=== PATIENT | male | born 1990 | race Caucasian/White ===

== ENCOUNTER → 2023-10-22 14:04 | Outpatient (REF) | payer OTHER, SELFPAY | LOC: RAD 14:04 | PROVIDERS: ATTENDING PHYSICIAN Physician Assistant | DX: N50.812 Left testicular pain (principal) | CPT/HCPCS: 76870; 93976 ==

== ENCOUNTER 2024-04-21 12:51 | Emergency (ER) | payer BC, SELFPAY ==
[2024-04-21 12:53] VITALS: BP 155/92
--- NOTE | 2024-04-21 14:50 | ED.GENMED ---
History of Present Illness
<NIKI Gary - Last Filed: 04/23/24 23:29>
General
Chief Complaint: Throat Problem
Source: patient
Exam Limitations: none
Time Seen by Provider: 04/21/24 14:38
Nursing documentation reviewed up to this point in time: agreed with
History of Present Illness
History of Present Illness:
Patient is a 31-year-old male who presents with a sore throat for the past several days. He was seen by urgent care on Wednesday, 2 days ago tested negative for strep. He had a culture done and did not start antibiotics yet. Last night however
his throat became worse he was not able to sleep and has been sore throat. He is able swallow secretions but has pain. He went to urgent care today it was concerned about his uvula being deviated and sent him here for an abscess. He received oral
Decadron at urgent care and does feel that his symptoms have improved. He denies any difficulty breathing.
He denies any associated fevers.
Review of Systems
<NIKI Gary - Last Filed: 04/23/24 23:29>
Review of Systems
Allergies reviewed?: Yes
All Other Systems: ROS reviewed and negative except as documented in HPI and ROS
Constitutional: Denies fever
EENT: Reports sore throat
Respiratory: Reports no symptoms; Denies trouble breathing
Cardiac: Reports no symptoms
ABD/GI: Reports no symptoms
: Reports no symptoms
Musculoskeletal: Reports no symptoms
Skin: Reports no symptoms
Neurological: Reports no symptoms
Psychiatric: Reports no symptoms
Phy Exam
<NIKI Gary - Last Filed: 04/23/24 23:29>
General Physical Exam
General Presentation: no apparent distress
General age: appears stated age
General Skin: warm and dry
General Habitus: normal
General Mental: alert
General Hydration: appears well hydrated
ENT Exam
ENT Exam: other (Pharynx is red uvula very minimally deviated to the left tonsils are swollen small exudate right tonsil; no obvious fullness to upper palate)
Cardiovascular Exam
Cardiovascular Exam: regular rate/rhythm, no murmur and normal peripheral pulses
Neurological Exam
Neurological Exam: alert and oriented x3
Musculoskeletal Exam
Musculoskeletal Exam: full ROM
Skin Exam
Skin Exam: normal color and warm/dry
Psychiatric Exam
Psychiatric Exam: normal mood/affect
Course
<NIKI Gary - Last Filed: 04/23/24 23:29>
Orders/Labs/Results
Orders:
Orders
04/21/24 14:48
CT Neck With Iv Contrast Urgent
Comment:
Reason For Exam: rule out peritonsillar abscess
04/21/24 14:49
0.9% Sodium Chloride 1000 ml [Nss] 1,000 ml IV BOLUS
04/21/24 14:50
Ketorolac [Toradol] 15 mg IV NOW STA
04/21/24 15:30
Complete Blood Count/With Diff Urgent
Comprehensive Metabolic Panel Urgent
Monotest Urgent
Rapid Strep Group A Urgent
RUBENS Source: Throat/Pharynx
Specimen Description:
Date Specimen was Collected: 04/21/24
Time Specimen was Collected: 15:20
Abnormal Lab Results
04/21/24
15:30
WBC 12.0 H 10^3/uL
(4.8-10.8)
Absolute Neuts (auto) 11.0 H 10^3/uL
(1.4-6.5)
Absolute Lymphs (auto) 0.8 L 10^3/uL
(1.2-3.4)
Neutrophils % 92.1 H %
(42.2-75.2)
Lymphocytes % 6.3 L %
(20.5-51.1)
Monocytes % 0.9 L %
(1.7-9.3)
Glucose 120 H mg/dl
(70-99)
04/21/24 15:30
04/21/24 15:30
Vital Signs
Initial and Last Documented VS:
Initial Vital Signs
Temp Pulse Resp BP Pulse Ox
98 F 88 16 155/92 99
04/21/24 12:53 04/21/24 12:53 04/21/24 12:53 04/21/24 12:53 04/21/24 12:53
Last Documented Vital Signs
Temp Pulse Resp BP Pulse Ox
98 F 75 20 132/88 98
04/21/24 12:53 04/21/24 16:15 04/21/24 16:15 04/21/24 16:15 04/21/24 16:15
<Roxie Guerrero PA-C - Last Filed: 04/21/24 17:29>
Orders/Labs/Results
Orders:
Orders
04/21/24 14:48
CT Neck With Iv Contrast Urgent
Comment:
Reason For Exam: rule out peritonsillar abscess
04/21/24 14:49
0.9% Sodium Chloride 1000 ml [Nss] 1,000 ml IV BOLUS
04/21/24 14:50
Ketorolac [Toradol] 15 mg IV NOW STA
04/21/24 15:30
Complete Blood Count/With Diff Urgent
Comprehensive Metabolic Panel Urgent
Monotest Urgent
Rapid Strep Group A Urgent
RUBENS Source: Throat/Pharynx
Specimen Description:
Date Specimen was Collected: 04/21/24
Time Specimen was Collected: 15:20
Abnormal Lab Results
04/21/24
15:30
WBC 12.0 H 10^3/uL
(4.8-10.8)
Absolute Neuts (auto) 11.0 H 10^3/uL
(1.4-6.5)
Absolute Lymphs (auto) 0.8 L 10^3/uL
(1.2-3.4)
Neutrophils % 92.1 H %
(42.2-75.2)
Lymphocytes % 6.3 L %
(20.5-51.1)
Monocytes % 0.9 L %
(1.7-9.3)
Glucose 120 H mg/dl
(70-99)
04/21/24 15:30
04/21/24 15:30
Vital Signs
Initial and Last Documented VS:
Initial Vital Signs
Temp Pulse Resp BP Pulse Ox
98 F 88 16 155/92 99
04/21/24 12:53 04/21/24 12:53 04/21/24 12:53 04/21/24 12:53 04/21/24 12:53
Last Documented Vital Signs
Temp Pulse Resp BP Pulse Ox
98 F 75 20 132/88 98
04/21/24 12:53 04/21/24 16:15 04/21/24 16:15 04/21/24 16:15 04/21/24 16:15
<Westley Lilly PA-C - Last Filed: 04/24/24 10:07>
Orders/Labs/Results
Orders:
Orders
04/21/24 14:48
CT Neck With Iv Contrast Urgent
Comment:
Reason For Exam: rule out peritonsillar abscess
04/21/24 14:49
0.9% Sodium Chloride 1000 ml [Nss] 1,000 ml IV BOLUS
04/21/24 14:50
Ketorolac [Toradol] 15 mg IV NOW STA
04/21/24 15:30
Complete Blood Count/With Diff Urgent
Comprehensive Metabolic Panel Urgent
Monotest Urgent
Rapid Strep Group A Urgent
RUBENS Source: Throat/Pharynx
Specimen Description:
Date Specimen was Collected: 04/21/24
Time Specimen was Collected: 15:20
Abnormal Lab Results
04/21/24
15:30
WBC 12.0 H 10^3/uL
(4.8-10.8)
Absolute Neuts (auto) 11.0 H 10^3/uL
(1.4-6.5)
Absolute Lymphs (auto) 0.8 L 10^3/uL
(1.2-3.4)
Neutrophils % 92.1 H %
(42.2-75.2)
Lymphocytes % 6.3 L %
(20.5-51.1)
Monocytes % 0.9 L %
(1.7-9.3)
Glucose 120 H mg/dl
(70-99)
04/21/24 15:30
04/21/24 15:30
Vital Signs
Initial and Last Documented VS:
Initial Vital Signs
Temp Pulse Resp BP Pulse Ox
98 F 88 16 155/92 99
04/21/24 12:53 04/21/24 12:53 04/21/24 12:53 04/21/24 12:53 04/21/24 12:53
Last Documented Vital Signs
Temp Pulse Resp BP Pulse Ox
98 F 75 20 132/88 98
04/21/24 12:53 04/21/24 16:15 04/21/24 16:15 04/21/24 16:15 04/21/24 16:15
<NIKI Gary - Last Filed: 04/23/24 23:29>
MDM/Problems Addressed
MDM/Problems Addressed:
Patient with persistent sore throat for the past several days seen in urgent care tested negative for strep sent here for rule out peritonsillar abscess. On exam patient is nontoxic no drooling very minimal deviation to the left of uvula with
exudate to the right tonsil, tonsils are bilaterally enlarged and red. He is tolerating secretions well and afebrile here in the ER. Will check CAT scan ,check for mono and give fluids .will also give IV Toradol.
1515: Care of patient at this time transferred to [facility].
<Roxie Guerrreo PA-C - Last Filed: 04/21/24 17:29>
*Critical Care Note
Total Time (30-74mins, 75-104mins- exclusive of procedures): Not Applicable
<Roxie Guerrero PA-C - Last Filed: 04/21/24 17:29>
Update Note
Update Note:
04/21/2024 1728 PM assumed care from [facility] at [address] shows no findings of a WOOL SPOTTER or any significant cellulitis. There incidentally was an abnormality of the thoracic spine could be just a simple bone island but the radiologist
recommended follow-up. The patient was informed about this. It is on the T3 vertebral body. Otherwise he feels remarkably better after getting Decadron at urgent care and already has a prescription for biotics. We talked about holding the
antibiotic for 24 hours since his rapid strep is negative. He is going to see how he feels and start the antibiotics should he need them. He got a repeat dose of Decadron for 2 days from now
<Westley Lilly PA-C - Last Filed: 04/24/24 10:07>
Update Note
Update Note:
04/21/2024 1728 PM assumed care from [facility] at [address] shows no findings of a WOOL SPOTTER or any significant cellulitis. There incidentally was an abnormality of the thoracic spine could be just a simple bone island but the radiologist
recommended follow-up. The patient was informed about this. It is on the T3 vertebral body. Otherwise he feels remarkably better after getting Decadron at urgent care and already has a prescription for biotics. We talked about holding the
antibiotic for 24 hours since his rapid strep is negative. He is going to see how he feels and start the antibiotics should he need them. He got a repeat dose of Decadron for 2 days from now
04/24/2024 1007 AM: Informed patient of positive group C strep culture, he states this was notified to him by urgent care as well. He is already on antibiotics. Reiterated that he will need follow-up for his abnormal CT scan result regarding the
sclerotic density in T3 vertebral body.
ED Attending Note
<NIKI Gary - Last Filed: 04/23/24 23:29>
-
Portions of this chart may have been created with voice recognition software.� Occasional wrong word or��sound alike� substitutions may have occurred due to the inherent limitations of voice recognition software.
Discharge Plan
Departure
Patient Disposition: Home (Routine Discharge)
Date of Disposition: 04/21/24
Time of Disposition: 17:22
Patient with high blood pressure during this ER visit?: No
Condition: Fair
Covid-19: Not Applicable
Discharge Problem:
Acute tonsillitis
Instructions: Sore throat in adults
Prescriptions:
New
dexamethasone 6 mg tablet
6 mg PO DAILY Qty: 1 0RF
Rx Instructions:
TAKE ON 04/23
Referrals:
Arvind Shea PA [Family Provider] - Follow up in 2-3 days
Juno Winston MD [Active] - Follow up in 5-7 days (ENT)
Activity Restrictions/Additional Instructions:
YOUR CAT SCAN DID NOT SHOW ANY ABSCESS IN YOUR TONSIL
YOU DO HAVE SOME MILD SWELLING THERE
TAKE THE DECADRON ON WEDNESDAY TO CONTINUE TO HELP WITH SWELLING AN DPAIN
MOTRIN 600 MG EVERY 8 HOURS NEEDED
DRINK FLUIDS
INCIDENTALLY THERE WAS A SPOT ON A BONE IN YOUR NECK THAT NEEDS FOLLOW UP TO ENSURE THAT IT IS BENIGN LESION.
SHOW TO YOUR PRIMARY DOCTOR
IT IS REASONABLE TO START THE ANTIBIOTICS PRESCRIBED BY URGENT CARE. OR YOU CAN WAIT UNTIL TOMORROW TO SEE THE RESULT OF YOUR CULTURE; BUT DON'T HESITATE TO START THEM FOR CONTINUED SYMPTOMS
RETURN FO RANY CONCERNS LIKE INABILITY TO SWALLOW, VOICE CHANGE, HIGH FEVER OR ANY CONCERNS.
Interventions
Interventions:
*Risk Screen - Suicide Last Done: 04/21/24 12:56
*General Assessment Last Done: 04/21/24 14:23
*Neglect/Abuse Screening Last Done: 04/21/24 12:56
ED- Fall Risk Assessment Last Done: 04/21/24 14:47
*Nursing Disposition Last Done: 04/21/24 17:45
ED-EENT Assessment Last Done: 04/21/24 14:23
ED- Pulmonary Assessment Last Done: 04/21/24 14:23
Discharge Date and Time
Discharge Date/Time: 04/21/24 17:46
Print Language: [place]
[2024-04-21] MEDS: NSS 1000 IV (15:31)
[2024-04-21] MEDS: TORADOL 15 MG IV (15:32)
[2024-04-21 15:41] LABS: % Basophils 0.3 % (0-2); % Eosinophils 0.1 % (0-6); % Immature Granulocytes 0.3 % (0-0.5); % Lymphocytes 6.3 % (20.5-51.1); % Monocytes 0.9 % (1.7-9.3); % Neutrophils 92.1 % (42.2-75.2); Absolute Lymphocytes 0.8 10^3/uL (1.2-3.4); Absolute Monocytes 0.1 10^3/uL (0.1-0.6); Hematocrit 44.1 % (39.0-52.0); Hemoglobin 15.7 g/dL (13.0-18.0); Mean Corp Hgb Conc. 35.6 g/dL (33.0-37.0); Mean Corpuscular Hgb 29.9 pg (27.0-31.0); Mean Platelet Volume 9.9 fL (7.4-10.4); Nucleated Red Blood Cells % 0 % (-); Platelet Count 240 10^3/uL (130-400); Red Blood Cell Count 5.25 10^6/uL (4.70-6.10); Red Cell Dist. Width 12.6 % (11.5-14.5)
[2024-04-21 15:55] LABS: Monotest Negative (Negative)
[2024-04-21 16:07] LABS: ALT (SGPT) 30 U/L (0-50); AST (SGOT) 30 U/L (17-59); Albumin 4.9 g/dl (3.5-5.0); Alkaline Phosphatase 66 U/L (38-126); Blood Urea Nitrogen 16 mg/dl (9-20); Calcium 9.7 mg/dl (8.4-10.2); Carbon Dioxide 25 mmol/L (22-30); Chloride 103 mmol/L (98-107); Glucose 120 mg/dl (70-99); Potassium 4.4 mmol/L (3.5-5.1); Sodium 141 mmol/L (135-145); Total Bilirubin 0.5 mg/dl (0.2-1.3); Total Protein 7.7 g/dl (6.3-8.2); eGFR > 60.00
[2024-04-21 16:15] VITALS: BP 132/88
== END 2024-04-21 17:46 | disposition home or self-care (01) ==
LOC: EMR 12:51
PROVIDERS: Nurse Practitioner; EMERGENCY PHYSICIAN Student in an Organized Health Care Education/Training Program; FAMILY PHYSICIAN Physician Assistant
DX: J03.90 Acute tonsillitis, unspecified (principal)
CPT/HCPCS: 99284; 96374; 96361; 70491; 80053; 85025; 86308; 87070; 87147; 87880; Q9967

== ENCOUNTER → 2024-05-11 09:39 | Outpatient (REF) | payer OTHER, SELFPAY | LOC: RAD 09:39 | PROVIDERS: ATTENDING PHYSICIAN Nurse Practitioner | DX: R93.89 Abnormal findings on diagnostic imaging of other specified body structures (principal) | CPT/HCPCS: 78803; A9503 ==